=== PATIENT | female | born 1990 | race African-American/Black ===

== ENCOUNTER 2016-05-17 14:44 | Emergency (ER) | payer OTHER ==
[~2016-05-17] VITALS: Ht 160 cm; Wt 59.0 kg
[2016-05-17] MEDS ORDERED: AMLO5TAB2 PO (14:54)
[2016-05-17] MEDS ORDERED: METOCLOPRAMIDE INJ 10MG/2ML VIAL (J2765) IV ONE (15:30)
[2016-05-17] MEDS ORDERED: NS 1,000 ML IV ONE (15:30)
[2016-05-17] MEDS ORDERED: diphenhydrAMINE INJ 50MG/ML VIAL (J1200) IV ONE (15:30)
[2016-05-17] MEDS ORDERED: KETOROLAC 30 MG/ML VIAL (J1885) IV ONE (15:30)
[2016-05-17 16:09] LABS: MEAN CORPUSCULAR HEMOGLOBIN 32.1 pg (27.0-33.0); MEAN CORPUSCULAR HGB CONC 33.3 g/dl (32.0-36.5); MEAN CORPUSCULAR VOLUME 96.2 fl (80.0-96.0); RED CELL DISTRIBUTION WIDTH 12.1 % (11.5-14.5); WHITE BLOOD COUNT 9.7 K/mm3 (4.0-10.0)
[2016-05-17 16:27] LABS: ANION GAP 9 MEQ/L (8-16); BLOOD UREA NITROGEN 13 MG/DL (7-18); CALCIUM LEVEL 9.6 MG/DL (8.5-10.1); CARBON DIOXIDE LEVEL 26 MEQ/L (21-32); CHLORIDE LEVEL 104 MEQ/L (98-107); CREATININE FOR GFR 0.81 MG/DL (0.55-1.02); GLOMERULAR FILTRATION RATE > 60.0 (>60); GLUCOSE, FASTING 84 MG/DL (70-105); POTASSIUM SERUM 3.3 MEQ/L (3.5-5.1); SODIUM LEVEL 139 MEQ/L (136-145)
[2016-05-17 17:03] LABS: CONTROL LINE HCG INT CTR LINE PRESENT
[2016-05-17] MEDS ORDERED: REGL10TA6 PO (17:40)
[2016-05-17 17:55] VITALS: BP 149/93
--- NOTE | 2016-05-17 18:51 | REP ---
CT BRAIN WITHOUT IV CONTRAST: CT brain is performed without IV contrast. Ventricles are normal in size and position. There is no midline shift or mass effect. Olivia-white differentiation is well maintained. There is no acute hemorrhage. There is no extra-axial fluid collection. Bone window examination is unremarkable. IMPRESSION: Negative noncontrast CT brain. Signed by Maxx Olivia MD 05/17/2016 08:12 P
== END 2016-05-17 17:45 | disposition home or self-care (01) ==
LOC: M ED 17:00
DX: G43.909 Migraine, unspecified, not intractable, without status migrainosus (principal)
CPT/HCPCS: 36415; 70450; 80048; 84703; 85027; 96361; 96374; 96375; 99283; J1200; J1885; J2765

== ENCOUNTER → 2016-06-16 | Outpatient (REF) | payer OTHER ==
[~2016-06-16] MED LIST: AMLO5TAB2 PO; REGL10TA6 PO
== END ==
LOC: M SMT 17:26
PROVIDERS: ATTEND Nurse Practitioner Family
DX: N39.0 Urinary tract infection, site not specified (principal)

== ENCOUNTER → 2016-09-19 | Outpatient (CLI) | payer MEDICAID, OTHER ==
[~2016-09-19] MED LIST changes: +DICL10TA PO; +LABE10TAB PO; +PRENTAB55 PO
[2016-09-19 14:07] LABS: BASO % 0.4 % (0.0-1.0); EOS # 0.2 K/mm3 (0.0-0.50); LARGE UNSTAINED CELL # 0.1 K/mm3 (0.0-0.4); LYMPH # 1.9 K/mm3 (1.5-6.5); LYMPH % 18.8 % (24.0-44.0); MEAN CORPUSCULAR HEMOGLOBIN 31.9 pg (27.0-33.0); MEAN CORPUSCULAR HGB CONC 34.3 g/dl (32.0-36.5); MEAN CORPUSCULAR VOLUME 92.9 fl (80.0-96.0); MONO # 0.4 K/mm3 (0.0-0.8); MONO % 3.8 % (0.0-5.0); NEUTROPHILS # 7.5 K/mm3 (1.8-7.7); NEUTROPHILS % 74.1 % (36.0-66.0); PLATELET COUNT, AUTOMATED 384 k/mm3 (150-450); RED CELL DISTRIBUTION WIDTH 12.1 % (11.5-14.5); WHITE BLOOD COUNT 10.1 K/mm3 (4.0-10.0)
[2016-09-19 14:30] LABS: HBsAg Prenatal NEGATIVE (NEGATIVE)
== END ==
LOC: M SMT 09:34
PROVIDERS: ATTEND Advanced Practice Midwife
DX: Z36 Encounter for antenatal screening of mother (principal); Z3A.00 Weeks of gestation of pregnancy not specified

== ENCOUNTER 2016-09-26 08:16 | Emergency (ER) | payer MEDICAID ==
[~2016-09-26] VITALS: Ht 160 cm; Wt 59.0 kg
[~2016-09-26 08:16] MED LIST changes: -DICL10TA PO; -LABE10TAB PO; -PRENTAB55 PO
[2016-09-26] MEDS ORDERED: METOCLOPRAMIDE INJ 10MG/2ML VIAL (J2765) IV ONE (08:45)
[2016-09-26] MEDS ORDERED: NS 1,000 ML IV ONE (08:45)
[2016-09-26 09:05] LABS: BASO # 0.1 K/mm3 (0.0-0.2); BASO % 0.6 % (0.0-1.0); EOS # 0.4 K/mm3 (0.0-0.50); EOS % 3.6 % (0.0-3.0); LARGE UNSTAINED CELL # 0.2 K/mm3 (0.0-0.4); LARGE UNSTAINED CELL % 1.8 % (0.0-4.0); LYMPH # 1.9 K/mm3 (1.5-6.5); MEAN CORPUSCULAR HGB CONC 33.8 g/dl (32.0-36.5); MEAN CORPUSCULAR VOLUME 91.6 fl (80.0-96.0); MONO # 0.4 K/mm3 (0.0-0.8); NEUTROPHILS # 7.3 K/mm3 (1.8-7.7); NEUTROPHILS % 73.1 % (36.0-66.0); PLATELET COUNT, AUTOMATED 351 k/mm3 (150-450); RED CELL DISTRIBUTION WIDTH 12.2 % (11.5-14.5)
[2016-09-26 09:20] LABS: ANION GAP 9 MEQ/L (8-16); BLOOD UREA NITROGEN 8 MG/DL (7-18); CALCIUM LEVEL 9.8 MG/DL (8.5-10.1); CARBON DIOXIDE LEVEL 22 MEQ/L (21-32); CHLORIDE LEVEL 104 MEQ/L (98-107); CREATININE FOR GFR 0.79 MG/DL (0.55-1.02); GLOMERULAR FILTRATION RATE > 60.0 (>60); GLUCOSE, FASTING 85 MG/DL (70-105); POTASSIUM SERUM 4.1 MEQ/L (3.5-5.1); SODIUM LEVEL 135 MEQ/L (136-145)
[2016-09-26 10:06] VITALS: BP 133/70
[2016-09-26] MEDS ORDERED: DICL10TA PO (10:35)
[2017-01-13] MEDS ORDERED: LABE10TAB PO (19:19)
[2017-01-13] MEDS ORDERED: PRENTAB55 PO (19:19)
== END 2016-09-26 10:46 | disposition home or self-care (01) ==
LOC: M ED 08:16
DX: O21.0 Mild hyperemesis gravidarum (principal); O10.911 Unspecified pre-existing hypertension complicating pregnancy, first trimester; Z87.891 Personal history of nicotine dependence; Z88.8 Allergy status to other drugs, medicaments and biological substances; Z91.09 Other allergy status, other than to drugs and biological substances; Z3A.01 Less than 8 weeks gestation of pregnancy
CPT/HCPCS: 80048; 81001; 81025; 85025; 96361; 96374; 99283; J2765

== ENCOUNTER → 2016-10-19 | Outpatient (CLI) | payer MEDICAID, OTHER ==
[~2016-10-19] MED LIST changes: +DICL10TA PO; +LABE10TAB PO; +PRENTAB55 PO
[2016-10-19 20:34] LABS: ALT/SGPT 15 U/L (12-78); AST/SGOT 11 U/L (15-37); BILIRUBIN,TOTAL 0.7 MG/DL (0.2-1.0); CREATININE FOR GFR 0.65 MG/DL (0.55-1.02); GLOMERULAR FILTRATION RATE > 60.0 (>60); URIC ACID 4.6 MG/DL (2.6-6.0)
== END ==
LOC: M SMT 14:25
PROVIDERS: ATTEND Advanced Practice Midwife
DX: O10.011 Pre-existing essential hypertension complicating pregnancy, first trimester (principal); Z3A.00 Weeks of gestation of pregnancy not specified

== ENCOUNTER → 2016-11-04 | Outpatient (REF) | payer MEDICAID, OTHER | LOC: M LAB REF 13:12 | PROVIDERS: ATTEND Advanced Practice Midwife | DX: Z36 Encounter for antenatal screening of mother (principal); Z3A.00 Weeks of gestation of pregnancy not specified ==

== ENCOUNTER → 2016-12-05 | Outpatient (CLI) | payer OTHER | LOC: M SMT 10:51 | PROVIDERS: ATTEND Obstetrics & Gynecology | DX: Z36 Encounter for antenatal screening of mother (principal); Z3A.00 Weeks of gestation of pregnancy not specified ==

== ENCOUNTER → 2016-12-16 | Outpatient (CLI) | payer MEDICAID, OTHER, SELFPAY ==
--- NOTE | 2016-12-16 17:00 | REP ---
Obstetric sonography: History: Supervision of , for anatomy. Findings: Scanning through the gravid uterus demonstrates a viable single intrauterine gestation in a breech lie. motion is observed and heart rate is recorded at 152 beats per minute. An anterior grade 0 placenta is seen without evidence of previa or abruption. Amniotic fluid is subjectively normal. Closed cervical length is 3.6 cm viewed transabdominally. There is a maternal left ovarian cyst, 1 cm in diameter compatible with corpus luteum. No other extrauterine abnormalities observed. No anomaly is seen. Four-chamber heart, kidneys and spine visualization were less than optimally seen. In addition, the feet were less than optimally seen due to position. The following additional anatomic structures are identified and felt to be sonographically unremarkable: cranium, choroid plexus, cavum, cerebellum and posterior fossa, face and profile, lungs, left and right ventricular outflow tract views, diaphragm, left-sided stomach, abdominal wall cord insertion, three-vessel umbilical cord, urinary bladder, upper extremities. Biometry chart: BPD 4.4 cm = 19 weeks 2 days HC 15.6 cm = 18 weeks 4 days AC 13.7 cm = 19 weeks 1 day FL 2.9 cm = 18 weeks 6 days HL 2.7 cm = 18-week 6 days HC/AC ratio normal 1.14. Cephalic index normal 0.80. Estimated weight 266 grams 0 pounds 9 ounces, 60th percentile for 18 weeks 4 days. Impression: Viable single intrauterine gestation of 18 weeks 6 days by today's composite criteria. SAM by today's sonography May 13, 2017. Four-chamber heart, kidneys, spine, and lower extremities less than optimally seen due to position. Signed by Moses Bynum MD 12/18/2016 09:38 A
== END ==
LOC: M RAD 15:45
PROVIDERS: ATTEND Obstetrics & Gynecology
DX: Z36.89 Encounter for other specified antenatal screening (principal); Z3A.18 18 weeks gestation of pregnancy

== ENCOUNTER → 2017-01-04 | Outpatient (CLI) | payer MEDICAID, OTHER ==
--- NOTE | 2017-01-04 16:57 | REP ---
OB ULTRASOUND: Real-time sonographic evaluation of the gravid uterus is performed utilizing transabdominal technique. There is a single living intrauterine gestation with estimated gestational age of 21 weeks 2 days. EDC 05/15/2017. Today's measurements indicate appropriate growth. BPD 50 mm = 21 weeks 1 day, at the 47th percentile. HC 186 mm = 21 weeks 0 days, at the 39th percentile. AC 178 mm = 22 weeks 5 day, at the 80th percentile. Femur length 37 mm = 21 weeks 6 days, at the 63rd percentile. HC/AC ratio 1.04 slightly below normal range of 1.05-1.24. Estimated weight 478 grams, 75th percentile. heart rate 141 beats per minute. SEEN/GROSSLY UNREMARKABLE Lateral ventricles Yes Posterior fossa Yes Upper lip Yes Four-chamber heart Yes LVOT Yes RVOT Yes Stomach Yes Cord insertion Yes Three vessel cord Yes Kidneys Yes Bladder Yes Spine Yes position: Transverse with head towards the maternal left side. Placenta: Anterior and grade 0 with no previa or abruption. Amniotic fluid: Within normal limits. Cervix is closed and measures 3.7 cm in length. Signed by Maxx Olivia MD 01/04/2017 07:51 P
== END ==
LOC: M RAD 15:13
PROVIDERS: ATTEND Advanced Practice Midwife
DX: O10.011 Pre-existing essential hypertension complicating pregnancy, first trimester (principal); Z36.89 Encounter for other specified antenatal screening; Z3A.21 21 weeks gestation of pregnancy

== ENCOUNTER → 2017-02-10 | Outpatient (CLI) | payer OTHER ==
[2017-02-10 14:02] LABS: MEAN CORPUSCULAR HEMOGLOBIN 31.6 pg (27.0-33.0); MEAN CORPUSCULAR HGB CONC 33.6 g/dl (32.0-36.5); PLATELET COUNT, AUTOMATED 340 10^3/uL (150-450); RED CELL DISTRIBUTION WIDTH 12.9 % (11.5-14.5); WHITE BLOOD COUNT 14.2 10^3/uL (4.0-10.0)
== END ==
LOC: M SMT 08:08
PROVIDERS: ATTEND Advanced Practice Midwife
DX: O10.011 Pre-existing essential hypertension complicating pregnancy, first trimester (principal)

== ENCOUNTER → 2017-03-03 | Outpatient (CLI) | payer OTHER ==
--- NOTE | 2017-03-03 14:57 | REP ---
OBSTETRIC SONOGRAPHY: HISTORY: Supervision of followup anatomy, four-chamber heart, kidneys, spine and feet. FINDINGS: Scanning through the gravid uterus demonstrates a viable single intrauterine gestation in a transverse lie, head to the maternal left. motion is observed and heart rate is recorder 141 beats per minute. An anterior grade 0 placenta is seen. Amniotic fluid is subjectively normal. Closed cervical length is 3.7 cm. No anomaly is seen. The following anatomic structures are identified and felt to be sonographically unremarkable: cranium, choroid plexus, cavum, cerebellum and posterior fossa, face and profile, lungs, four-chamber heart with left and right ventricular outflow tract views, diaphragm, left-sided stomach, abdominal wall cord insertion, three-vessel umbilical cord, kidneys and bladder, spine, upper and lower extremities. Biometry Chart: BPD 5.0 cm = 21 weeks 1 day HC 18.6 cm = 21 weeks 0 days AC 17.8 cm = 22 weeks 5 days FL 3.7 cm = 21 weeks 6 days HL 3.5 cm = 22 weeks 0 days HC/AC ratio 1.04 (1.05-1.24). Cephalic index normal 0.75. Estimated weight 478 grams, 1 pound 0 ounces, 75th percentile for 21 weeks 2 days. IMPRESSION: Viable single intrauterine gestation at 21 weeks 4 days by today's composite sonographic criteria for expected gestational age estimate based on prior sonography is 21 weeks 5 days. SAM by prior sonography May 12, 2017. anatomic survey is felt to be complete. There is appropriate interval growth. Signed by Moses Bynum MD 03/03/2017 04:00 P
== END ==
LOC: M RAD 13:48
PROVIDERS: ATTEND Advanced Practice Midwife
DX: O10.012 Pre-existing essential hypertension complicating pregnancy, second trimester (principal); Z3A.21 21 weeks gestation of pregnancy

== ENCOUNTER → 2017-03-10 | Outpatient (CLI) | payer OTHER | LOC: M RAD 14:22 | DX: Z36.89 Encounter for other specified antenatal screening (principal); Z3A.30 30 weeks gestation of pregnancy | CPT/HCPCS: 76819 ==

== ENCOUNTER 2017-03-14 16:42 | Outpatient (CLI) | payer OTHER ==
[2017-03-14 18:59] LABS: TOTAL PROTEIN,RANDOM URINE < 5.0 MG/DL (0.0-12.0)
[2017-03-14 18:59] LABS: CREATININE,RANDOM URINE < 13.0 MG/DL
[2017-03-14 19:51] LABS: HEMATOCRIT 32.2 % (36.0-47.0); HEMOGLOBIN 10.9 g/dl (12.0-16.0); MEAN CORPUSCULAR HEMOGLOBIN 30.9 pg (27.0-33.0); MEAN CORPUSCULAR HGB CONC 33.9 g/dl (32.0-36.5); MEAN CORPUSCULAR VOLUME 91.2 fl (80.0-96.0); PLATELET COUNT, AUTOMATED 342 10^3/uL (150-450); RED BLOOD COUNT 3.53 10^6/uL (4.00-5.40); RED CELL DISTRIBUTION WIDTH 12.7 % (11.5-14.5); WHITE BLOOD COUNT 16.4 10^3/uL (4.0-10.0)
[2017-03-14 20:07] LABS: ALT/SGPT 20 U/L (12-78); AST/SGOT 19 U/L (7-37); BILIRUBIN,TOTAL 0.5 MG/DL (0.2-1.0); CREATININE FOR GFR 0.52 MG/DL (0.55-1.02); GLOMERULAR FILTRATION RATE > 60.0 (>60); LDH LACTATE DEHYDROGENASE 182 U/L (84-246); URIC ACID 5.4 MG/DL (2.6-6.0)
== END 2017-03-14 20:50 | disposition home or self-care (01) ==
LOC: M LDO 16:42
DX: O36.8130 Decreased fetal movements, third trimester, not applicable or unspecified (principal); Z3A.31 31 weeks gestation of pregnancy; Z79.899 Other long term (current) drug therapy; Z88.8 Allergy status to other drugs, medicaments and biological substances; Z91.89 Other specified personal risk factors, not elsewhere classified
CPT/HCPCS: 76815

== ENCOUNTER → 2017-03-17 | Outpatient (CLI) | payer OTHER | LOC: M RAD 13:51 | DX: O10.013 Pre-existing essential hypertension complicating pregnancy, third trimester (principal); Z3A.31 31 weeks gestation of pregnancy | CPT/HCPCS: 76815 ==

== ENCOUNTER → 2017-03-24 | Outpatient (CLI) | payer OTHER | LOC: M RAD 14:11 | DX: O10.013 Pre-existing essential hypertension complicating pregnancy, third trimester (principal) | CPT/HCPCS: 76815 ==